=== PATIENT | female | born 1965 | race Caucasian/White ===

== ENCOUNTER 2019-10-20 11:27 | Emergency (ER) | payer BC, MEDICAID ==
[~2019-10-20] VITALS: Ht 170.2 cm; Wt 59.0 kg
[2019-10-20 11:52] VITALS: BP_SYST 92
[2019-10-20] MEDS ORDERED: Z-PACK PO (11:52)
[2019-10-20] MEDS ORDERED: AMOX-426 PO (11:52)
[2019-10-20 12:33] VITALS: BP_SYST 100
== END 2019-10-20 12:19 | disposition home or self-care (01) ==
LOC: SED 11:27
DX: J18.9 Pneumonia, unspecified organism (principal); Z20.828 Contact with and (suspected) exposure to other viral communicable diseases
CPT/HCPCS: 99283; U0003

== ENCOUNTER 2019-10-28 12:30 | Emergency (ER) | payer MEDICAID ==
[~2019-10-28] VITALS: Ht 170.2 cm; Wt 59.0 kg
[~2019-10-28 12:30] MED LIST: AMOX-426 PO; Z-PACK PO
[2019-10-28 12:35] VITALS: BP_SYST 95
--- NOTE | 2019-10-28 12:35 | NUR ---
Pt walked in to ER with c/o SOB and cough, diarrhea and generalized weakness x 1 week. Reports she was seen by her PMD and dx with PNA, currently taking amoxicillin. V/S stable, pt is afebrile. Currently resting in bed, will continue to monitor.
--- NOTE | 2019-10-28 12:40 | NUR ---
ER Dr. Renteria at bedside examining patient.
--- NOTE | 2019-10-28 12:50 | NUR ---
# 20 gauge angiocath placed to LAC. Use of asceptic technique. Opsite placed over site. Blood return noted. Blood for lab drawn from site. Flushed with 10 cc of normal saline. No evidence of infiltration noted. Patient tolerated well.
--- NOTE | 2019-10-28 13:20 | NUR ---
Radiology at bedside for CXR
[2019-10-28] MEDS ORDERED: NACL 0.9% 1,000 ML IV ONE (13:30)
--- NOTE | 2019-10-28 13:32 | NUR ---
1L NS bolus infusing as ordered
[2019-10-28 13:35] LABS: BASOPHILS % (AUTO) 0.3 % (0.0-2.0); EOSINOPHILS # (AUTO) 0.7 K/uL (0.0-0.4); EOSINOPHILS % (AUTO) 8.6 % (0.0-4.0); HEMATOCRIT 39.2 % (36-48); HEMOGLOBIN 13.2 g/dL (12.0-16.0); LYMPHOCYTES # (AUTO) 1.5 K/uL (1.0-5.5); LYMPHOCYTES % (AUTO) 20.1 % (20.5-51.5); MEAN CORPUSCULAR HEMOGLOBIN 33 pg (27-31); MEAN CORPUSCULAR HGB CONC 34 % (32-36); MEAN CORPUSCULAR VOLUME 96 fL (79.0-98.0); MONOCYTES # (AUTO) 0.5 K/uL (0.0-1.0); NEUTROPHILS # (AUTO) 4.9 K/uL (1.8-7.7); PLATELET COUNT (AUTO) 354 K/uL (130-430); RED BLOOD CELL COUNT(AUTO) 4.08 MIL/uL (4.2-6.2); RED CELL DISTRIBUTION WIDTH 12.7 % (9.0-15.0); WHITE BLOOD COUNT (AUTO) 7.6 K/uL (4.8-10.8)
--- NOTE | 2019-10-28 13:42 | NUR ---
EKG performed at BS by EMT. Physician given copy of EKG for review.
[2019-10-28 13:50] LABS: CALCIUM 8.8 mg/dL (8.4-11.0); CREATININE 0.78 mg/dL (0.55-1.30); POTASSIUM 4.1 mmol/L (3.5-5.1)
[2019-10-28 13:55] LABS: ALBUMIN 3.6 g/dL (3.4-4.8); TOTAL BILIRUBIN 0.4 mg/dL (0.0-1.0)
--- NOTE | 2019-10-28 14:16 | NUR ---
UP AMBULATING TO BATHROOM. NO DYSPNEA. STEADY GAIT
--- NOTE | 2019-10-28 15:45 | NUR ---
Patient given written and verbal discharge instructions and verbalizes understanding. ER MD discussed with patient the results and treatment provided. Patient in stable condition. ID arm band removed. IV catheter removed intact and dressing applied, no active bleeding. Rx of CLARATIN given. Patient educated on pain management and to follow up with PMD. Pain Scale 0/10. Opportunity for questions provided and answered. Medication side effect fact sheet provided.
[2019-10-28 17:02] VITALS: BP_SYST 95
== END 2019-10-28 17:02 | disposition home or self-care (01) ==
LOC: SED 12:30
DX: J40 Bronchitis, not specified as acute or chronic (principal); H65.91 Unspecified nonsuppurative otitis media, right ear; F17.200 Nicotine dependence, unspecified, uncomplicated; Z90.49 Acquired absence of other specified parts of digestive tract
CPT/HCPCS: 36415; 71045; 80053; 82550; 85025; 93005; 99285; J7030